=== PATIENT | female | born 1990 | race Caucasian/White ===

== ENCOUNTER 2020-12-14 09:08 | Emergency (ER) | payer SELFPAY ==
[2020-12-14 09:16] VITALS: BP 127/66; PULSE 67; RESP 18; TEMP 35.7; O2SAT 100
--- NOTE | 2020-12-14 09:41 | ED.LOWEXIN ---
HPI - Extremity Injury (Lower) General Chief Complaint: Extremity Injury, Lower Stated Complaint: Right foot Pain Time Seen by Provider: 12/14/20 09:29 Source: patient and RN notes reviewed Mode of arrival: ambulatory Limitations: no limitations History of Present Illness HPI Narrative: Patient presents today complaining of an injury to her left knee and her right ankle. Reports that she was killing a wasp last night when she twisted both areas. She has been ambulatory since the injuries. She took a dose of ibuprofen last night and applied ice for 15 minutes without relief. She currently rates her knee pain 6/10 and rates her ankle pain 12/10. States she did have some torn ligaments in her left knee in the past, but denies any surgeries. MD complaint: knee injury and ankle injury Related Data Allergies Allergy/AdvReac Type Severity Reaction Status Date / Time No Known Allergies Allergy Verified 05/01/17 16:29 Review of Systems Review of Systems: Narrative: CONSTITUTIONAL: Denies body aches, fever, chills, or sweats. EYES: Denies visual changes, redness, or discharge. ENT: Denies rhinorrhea, congestion, sore throat, or otalgia. CARDIOVASCULAR: Denies chest pain, palpitations, or edema. RESPIRATORY: Denies cough or dyspnea. GASTROINTESTINAL: Denies abdominal pain, nausea, vomiting, or diarrhea. GENITOURINARY: Denies dysuria or hematuria. SKIN: Denies rash, itching, or wounds. MUSCULOSKELETAL: Denies back pain, or myalgia. + Left knee pain, right ankle pain NEUROLOGIC: Denies headache, numbness, tingling, or weakness. PSYCH: Denies depression or anxiety. PMFSH Comments At time of signature, I have reviewed and agree with nursing past medical, surgical, social and family history unless otherwise noted. Please see nursing chart for further information. There is no relevant family history pertinent to the presenting complaint Exam Narrative: Exam Narrative: GENERAL: Well-appearing, well-nourished, and in no acute distress. HEAD: Normocephalic, atraumatic. EYES: EOMI. No redness or drainage. Conjunctivae normal. ENT: Mucous membranes pink and moist. NECK: Normal AROM. CHEST: No respiratory distress. EXTREMITIES: Right ankle: Patient localizes pain to the lateral ankle. No bony tenderness to the lateral or medial malleolus. Patient has some tenderness to the anterior ankle with mild localized soft tissue swelling. Full AROM with increased pain. Distal sensation intact. Capillary refill normal. Pedal pulse normal. Left knee: Soft tissue tenderness about the entire knee. No bony tenderness of the patella. No abnormal movement of the patella. No tenderness to the patellar tendon. No bony tenderness of the head of the fibula. Full AROM with mild increased pain. +effusion noted. Distal sensation intact. Capillary refill normal. Pedal pulse normal. SKIN: Warm, dry, no rash. Capillary refill normal. Normal skin turgor. NEURO: No focal deficits. Alert and oriented x3. Gait steady. PSYCH: Normal affect. No signs of depression or anxiety. Course Course Emergency Course: Per exam and [place] ankle rules, Discussed with patient that she is not having bony tenderness of the ankle and that I felt she likely had a sprain. I did offer an xray and patient has declined. Also discussed knee exam and that the mechanism of injury would not have likely resulted in a bony injury. Suggested RICE treatment at home with follow up for further evaluation in 1 week if symptoms are not improving. Vital Signs Vital signs: Vital Signs Temperature 96.3 F L 12/14/20 09:16 Pulse Rate 67 12/14/20 09:16 Respiratory Rate 18 12/14/20 09:16 Blood Pressure 127/66 12/14/20 09:16 Pulse Oximetry 100 12/14/20 09:16 Temperature 96.3 F L 12/14/20 09:16 Pulse Rate 67 12/14/20 09:16 Respiratory Rate 18 12/14/20 09:16 Blood Pressure 127/66 12/14/20 09:16 Pulse Oximetry 100 12/14/20 09:16 Reviewed. Pt has been instruct
== END 2020-12-14 09:49 | disposition home or self-care (01) ==
PROVIDERS: Emergency Provider Nurse Practitioner
DX: S93.401A Sprain of unspecified ligament of right ankle, initial encounter (principal); S83.92XA Sprain of unspecified site of left knee, initial encounter; X50.9XXA Other and unspecified overexertion or strenuous movements or postures, initial encounter
CPT/HCPCS: 99202; G0463

== ENCOUNTER 2023-09-29 06:47 | Emergency (ER) | payer BC, SELFPAY ==
--- NOTE | ~2023-09-29 | CT_ITS ---
EXAMINATION: CT abdomen pelvis w con DATE: 09/29/2023 10:00 INDICATION: Abdominal pain. TECHNIQUE: Computed tomography (CT) of the abdomen and pelvis was performed with 100 mL Omnipaque 350 intravenous contrast. Automated exposure control and iterative reconstruction technique were employe d. The dose-length product was 1549.75 mGy-cm. COMPARISON: None. FINDINGS: The visualized portions of the lung bases demonstrate mild scarring in paraspinal right low er lobe. No pleural effusion. The heart size is normal. No pericardial effusion. There is diffuse hep atic steatosis. The gallbladder, spleen, pancreas, and left adrenal gland are normal. There is a 2.2 cm mass in right adrenal gland measuring soft tissue attenuation. The kidneys are normal. There are n o dilated loops of bowel. The appendix is normal. There are no pathologically enlarged lymph nodes. T here is no free intraperitoneal fluid. There is moderate lumbar spondylosis and mild thoracic spondyl osis. IMPRESSION: 1. Diffuse hepatic steatosis. 2. 2.2 cm mass in right adrenal gland. In the absence of known malignancy, this finding is likely an adenoma. Reviewed, dictated and finalized at location E. NUTRITION SCIENTIST
[2023-09-29 06:49] VITALS: BP 137/71; PULSE 84; RESP 14; TEMP 36.6; O2SAT 98
[2023-09-29 07:57] LABS: Basophils Absolute Auto 0.1 K/mm3 (0.0-0.1); Basophils Percent Auto 0.7 % (0.2-1.2); Eosinophils Absolute Auto 0.3 K/mm3 (0-0.3); Eosinophils Percent Auto 1.7 % (0-4.4); Hematocrit 40.3 % (37.0-47.0); Hemoglobin 12.7 g/dL (12.0-15.0); Immature Granulocyte Absolute 0.06 K/mm3 (0.00-0.031); Immature Granulocyte Percent A 0.4 % (0-0.5); Lymphocytes Absolute Auto 3.26 K/mm3 (0.9-3.2); Lymphocytes Percent Auto 19.7 % (18.3-44.2); Mean Corpuscular HGB Conc 31.5 g/dl (32-36); Mean Corpuscular Hemoglobin 28.6 pg (26-34); Mean Corpuscular Volume 90.8 fl (80-100); Mean Platelet Volume 10.8 fl (7.4-10.4); Monocytes Absolute Auto 0.7 K/mm3 (0.1-0.6); Monocytes Percent Auto 4.2 % (2.6-8.5); Neutrophils Absolute Auto 12.2 K/mm3 (1.3-6.7); Neutrophils Percent Auto 73.3 % (45.5-73.1); Platelet Count Result 389 k/mm3 (150-375); Red Blood Count 4.44 M/mm3 (4.2-5.4); Red Cell Distribution Width 14.6 % (11.5-14.5); White Blood Count 16.6 K/mm3 (4.5-10.0)
[2023-09-29 08:13] LABS: Alanine Aminotransferase 57 U/L (6-35); Albumin Level 4.6 g/dL (3.5-5.1); Alkaline Phosphatase 140 U/L (38-126); Anion Gap 9 mmol/L (8-16); Aspartate Amino Transferase 55 U/L (14-36); Bilirubin,Total 1.3 mg/dL (0.2-1.3); Blood Urea Nitrogen 12 mg/dL (7-17); Calcium 9.6 mg/dL (8.4-10.2); Carbon Dioxide 28 mmol/L (22-30); Chloride 100 mmol/L (98-107); Estimated CRCL calculation 118 ml/min; Estimated Glomerular Filt Rate > 60; Glucose 138 mg/dL (65-110); Potassium 4.2 mmol/L (3.4-5.0); Sodium 137 mmol/L (137-145)
[2023-09-29 08:15] LABS: Appearance Urine Clear (Clear); Bacteria Urine None Seen /hpf; Bilirubin Urine Negative (Negative); Blood Urine Negative (Negative); Color Urine Yellow (Yellow); Glucose Urine UA Negative (Negative); Ketones Urine Negative (Negative); Leukocyte Esterase Ur 1+ LEU/UL (Negative); Nitrate Urine Negative (Negative); Non Pathogenic Casts 0-2; Protein Urine Trace mg/dL (Negative); RBC Urine 0-2 /hpf (0-2); Specific Grav Ur 1.017 (1.001-1.035); Squamous Epithelial Cell Urine Occasional /hpf (Few); Urobilinogen Urine 0.2 mg/dL (<2.0); WBC Urine 21-50 /hpf
[2023-09-29 08:17] LABS: SPREG INTERNAL CONTROL Positive; Serum Qual hCG Negative
[2023-09-29 08:24] LABS: Add Urine Microscopic? YES
--- NOTE | 2023-09-29 10:18 | ED.GENADULT ---
HPI - General Adult General Chief complaint: Urogenital-Female Stated complaint: kidney is on fire Time Seen by Provider: 09/29/23 08:54 History of Present Illness HPI narrative: Sari Prasad is a 33 y/o female who presents with reports of having Right flank pain that started Tuesday night She states pain has been constant/ denies dysuria or hematuria she states she has not had a menses in 10 years. Reports a little nausea no vomiting/ she has not taken anything for pain today. Denies changes with BMs. Related Data Allergies Allergy/AdvReac Type Severity Reaction Status Date / Time No Known Allergies Allergy Verified 05/01/17 16:29 Review of Systems Review of Systems: CONSTITUTIONAL: Denies fever, chills, or sweats. EYES: Denies visual changes, redness, or discharge. ENT: Denies rhinorrhea, congestion, sore throat, or otalgia. CARDIOVASCULAR: Denies chest pain, palpitations, or edema. RESPIRATORY: Denies cough or dyspnea. GASTROINTESTINAL: Denies abdominal pain, reports some nausea, denies vomiting, or diarrhea. Reports Right flank pain GENITOURINARY: Denies dysuria or hematuria. SKIN: Denies rash or itching. MUSCULOSKELETAL: Denies back pain, joint pain, or myalgia. NEUROLOGIC: Denies headache, numbness, dizziness, or weakness. PSYCHIATRIC: Denies anxiety or depression. Exam Narrative: GENERAL: Well-appearing, well-nourished, and in no acute distress. HEAD: Normocephalic, atraumatic. EYES: PERRLA and EOMI. ENT: Nares clear, no rhinorrhea or epistaxis. Mucous membranes moist. Oropharynx without tonsillar hypertrophy exudate or other lesions. NECK: Supple. No adenopathy or masses. No carotid bruits or JVD CHEST: Clear to auscultation. No respiratory distress. No wheezes rales or rhonchi HEART: Regular rate and rhythm. No murmur heard. Normal peripheral pulses. ABDOMEN: Soft, nontender, nondistended, normal active bowel sounds. + Right CVA tenderness. EXTREMITIES: Normal range of motion. No edema. SKIN: Warm, dry, no rash. NEURO: No focal deficits. Alert and oriented x3. PSYCH: Normal mood and affect. Course Vital Signs Vital signs: Vital Signs Temperature 36.6 C 09/29/23 06:49 Pulse Rate 84 01/18/24 06:49 Respiratory Rate 14 09/29/23 06:49 Blood Pressure 137/71 09/29/23 06:49 Pulse Oximetry 98 09/29/23 06:49 Oxygen Delivery Room Air 09/29/23 06:49 Temperature 36.6 C 09/29/23 06:49 Pulse Rate 77 09/29/23 10:56 Respiratory Rate 18 09/29/23 10:56 Blood Pressure 118/64 09/29/23 10:56 Pulse Oximetry 96 09/29/23 10:56 Oxygen Delivery Room Air 09/29/23 06:49 Medical Decision Making MDM Narrative Medical decision making narrative: On exam pt appears well, she states she has had this right flank pain that started yesterday night. No urinary symptoms/ fever/chills/vomiting/ changes to her BMs. No previous abdominal surgeries. Lung sounds clear/ afebrile/ bowel sounds present/ abdomen is soft and non tender/ Concern for : pyelonephritis/ cholecystitis/ UTI / ureterolithiasis/ obstructing ureterolithiasis + right CVA tenderness + leukocytosis 16.6 / Urine showing leukocytes and WBC - CMP is showing AST 55/ ALT 57/ Alk phos 140-- CT is negative for acute findings it is showing diffuse hepatic steatosis and adrenal adenoma. With pt's presenting symptoms / exam and labs will treat her for pyelonephritis give one dose of Rocephin here D/c home with Bactrim BID for 10 days Close follow up regarding the diffuse hepatic steatosis and adrenal mass Strict return precautions provided. Medical Records Medical records reviewed: Yes I reviewed the external patient's medical records. Vital Signs Vital Signs: Vital Signs Temperature 36.6 C 09/29/23 06:49 Pulse Rate 84 09/29/23 06:49 Respiratory Rate 14 09/29/23 06:49 Blood Pressure 137/71 09/29/23 06:49 Pulse Oximetry 98 09/29/23 06:49 Oxygen Delivery Room Air 09/29/23 06:49 Temp
[2023-09-29] MEDS: SODIUM CHLORIDE 0.9% IV 1,000 ML 999 ML IV CONT (10:39)
[2023-09-29] MEDS: KETOROLAC 30 MG/ML VIAL (*BKC) IV PUSH (10:40)
[2023-09-29] MEDS: ONDANSETRON INJ 4 MG/2 ML VIAL IV PUSH (10:40)
[2023-09-29 10:45] VITALS: BP 130/70; PULSE 76; RESP 16; O2SAT 100
[2023-09-29 10:56] VITALS: BP 118/64; PULSE 77; RESP 18; O2SAT 96
== END 2023-09-29 13:18 | disposition home or self-care (01) ==
PROVIDERS: Emergency Medicine; Emergency Provider Nurse Practitioner Family
DX: N30.00 Acute cystitis without hematuria (principal); N12 Tubulo-interstitial nephritis, not specified as acute or chronic
CPT/HCPCS: 36415; 74177; 80053; 81001; 81025; 84703; 85025; 87086; 87088; 96361; 96365; 96375; 99284; J0696; J1885; J2405; J7030; Q9967

== ENCOUNTER 2025-08-28 11:32 | Outpatient (CLI) | payer OTHER, SELFPAY ==
[2025-08-28 12:25] LABS: Hematocrit 40.7 % (37.0-47.0); Hemoglobin 12.8 g/dL (12.0-15.0); Immature Granulocyte Percent A 0.4 % (0-0.5); Lymphocytes Absolute Auto 3.01 K/mm3 (0.9-3.2); Mean Corpuscular HGB Conc 31.4 g/dl (32-36); Mean Corpuscular Hemoglobin 28.1 pg (26-34); Mean Corpuscular Volume 89.3 fl (80-100); Nucleated Red Blood Cells Absolute Auto 0.000 K/mm3 (0.0-0.012); Nucleated Red Blood Cells Perc 0.0 % (0.0-0.2); Platelet Count Result 377 k/mm3 (150-375); Red Blood Count 4.56 M/mm3 (4.2-5.4); White Blood Count 11.4 K/mm3 (4.5-10.0)
[2025-08-28 12:49] LABS: Alanine Aminotransferase 39 U/L (6-35); Albumin Level 4.7 g/dL (3.5-5.1); Alkaline Phosphatase 143 U/L (38-126); Anion Gap 11 mmol/L (4-12); Aspartate Amino Transferase 54 U/L (14-36); Bilirubin,Total 0.6 mg/dL (0.2-1.3); Blood Urea Nitrogen 18 mg/dL (7-17); Calcium 9.5 mg/dL (8.4-10.2); Carbon Dioxide 26 mmol/L (22-30); Chloride 102 mmol/L (98-107); Estimated Glomerular Filt Rate > 60; Glucose 104 mg/dL (65-110); Potassium 4.3 mmol/L (3.4-5.0); Sodium 139 mmol/L (137-145); Total Protein 8.9 g/dL (6.3-8.2)
[2025-08-28 13:02] LABS: Beta HCG Quantitative < 2.39 mIU/ML
[2025-08-28 13:16] LABS: Thyroid Stimulating Hormone Reflex 1.500 uIU/mL (0.465-4.68)
[2025-08-29 07:09] LABS: LH 10.5 mIU/mL (.)
[2025-08-29 08:08] LABS: FSH 4.7 mIU/mL (.)
== END 2025-08-28 11:33 | disposition home or self-care (01) ==
PROVIDERS: PCP Family Medicine; Visit Provider Nurse Practitioner Obstetrics & Gynecology
DX: N91.2 Amenorrhea, unspecified (principal)
CPT/HCPCS: 36415; 80053; 82306; 83001; 83002; 84144; 84146; 84443; 84702; 85025